=== PATIENT | female | born 1935 | race Two or more races ===

== ENCOUNTER → 2017-09-13 | Outpatient (CLI) | payer BC, MEDICARE ==
[2017-09-13 09:54] LABS: ALT 28 U/L (9-52); AST 28 U/L (14-36); Alkaline Phosphatase 105 U/L (38-126); Anion Gap 10 mmol/L; Blood Urea Nitrogen 17 mg/dL (7-17); Calcium 9.5 mg/dL (8.4-10.2); Carbon Dioxide 24 mmol/L (22-30); Chloride 102 mmol/L (98-107); Cholesterol 141 mg/dL (<200); Glucose 93 mg/dL (74-99); HDL Cholesterol 68 mg/dL (40-60); Non-African American GFR(MDRD) >60 (>60 ml/min/1.73 sqM); Potassium 4.7 mmol/L (3.5-5.1); Sodium 136 mmol/L (137-145); Total Bilirubin 0.5 mg/dL (0.2-1.3); Total Protein 7.8 g/dL (6.3-8.2)
[2017-09-13 10:03] LABS: CH 30.7; CHCM 32.4; HDW 2.34; HGB 13.9 gm/dL (11.4-16.0); MCH 30.1 pg (25.0-35.0); MCHC 31.6 g/dL (31.0-37.0); MCV 95.3 fL (80.0-100.0); Mean Platelet Volume 7.5; RBC 4.62 m/uL (3.80-5.40); RDW 12.6 % (11.5-15.5); WBC 5.8 k/uL (3.8-10.6)
[2017-09-13 11:26] LABS: Hemoglobin A1C 5.8 % (4.2-6.1)
== END | disposition home or self-care (01) ==
LOC: LABWHC1 08:40
PROVIDERS: ATTEND Internal Medicine
DX: Z00.00 Encounter for general adult medical examination without abnormal findings (principal); E78.5 Hyperlipidemia, unspecified; R73.01 Impaired fasting glucose
CPT/HCPCS: 36415; 80053; 80061; 83036; 85027

== ENCOUNTER 2019-08-21 11:41 | Day surgery (SDC) | payer OTHER, MEDICARE ==
[2019-08-18 16:17] VITALS: BMI 19.3
[~2019-08-21 11:41] MED LIST: ALBUTEROL NEB (CONC) 2.5 MG/0.5 ML INHALATION ONE; DEXAMETHASONE SOD PHOSPHATE 10 MG/ML 1 ML VIAL IV ONE; HYDROmorphone 0.5 MG/0.5 ML SYRINGE IVP PRN; LACTATED RINGERS 1,000 ML IV SCH; LIDOCAINE 1% 20 ML VIAL (10MG/ML) FOR IV START INTRADERMA PRN; LIDOCAINE 2% (PF) 20 MG/ML 5 ML VIAL INHALATION ONE; LIDOCAINE VISCOUS 300 MG/15 ML CUP MUCOUS MEM ONE; MIDAZOLAM 2 MG/2 ML VIAL IV PRN; ONDANSETRON 4 MG/2 ML VIAL IVP ONE; SODIUM CHLORIDE 0.9% 1,000 ML IV SCH; fentaNYL (PF) 50 MCG/ML 2 ML AMP IV PRN
[2019-08-21] MEDS ORDERED: PROPOFOL 10 MG/ML 20 ML VIAL IV ONE (13:11)
[2019-08-21] MEDS ORDERED: LIDOCAINE 1% INJ 10MG/ML (20 ML MDV) ONE (13:11)
[2019-08-21] MEDS ORDERED: LIDOCAINE 2% INJ 20 MG/ML INTRATRACH ONE (13:35)
[2019-08-21] MEDS ORDERED: IV FLUID CONTINUATION 1,000 ML IV ONE (14:20)
[2019-08-21 14:31] VITALS: TEMP 96.8
[2019-08-21 15:23] VITALS: BP 201/91; PULSE 61; RESP 18
--- NOTE | 2019-08-21 15:33 | XR ---
EXAMINATION TYPE: XR chest 1V portable DATE OF EXAM: 08/21/2019 COMPARISON: 02/13/2014 HISTORY: Status post postoperative lung biopsy in the right TECHNIQUE: Single frontal view of the chest is obtained. FINDINGS: New right basilar consolidation and trace right pleural effusion are seen. Interstitial pr ominence is chronic. Subpleural reticulation may relate to atelectasis or early fibrosis. Cardiomedia stinal silhouette is enlarged but similar to the prior of 2013. No sizable postprocedural pneumothora x. Minimal left basilar atelectasis. Diffuse osseous demineralization. Cholecystectomy clips are note d. IMPRESSION: Postbiopsy change of the right lower lobe with new right basilar consolidation and small right pleural effusion. No sizable postprocedural pneumothorax. Chronic enlargement of the cardiomed iastinal silhouette.
--- NOTE | 2019-08-21 21:18 | PCN ---
PROCEDURE NOTE PREOP DIAGNOSES: Right hilar mass. Subcarinal lymphadenopathy. POSTOP DIAGNOSES: Right hilar mass. Subcarinal lymphadenopathy. PROCEDURE PERFORMED: Flexible bronchoscopy under general anesthesia, transbronchial needle aspiration of subcarinal lymph nodes, endobronchial biopsy of the right middle lobe, endobronchial brushings of the right middle lobe, bronchioalveolar lavage of the right middle lobe. DESCRIPTION OF PROCEDURE: This procedure was done in the operating room. The patient was intubated and placed on mechanical ventilator. The patient was intubated by #8 oral tracheal tube and intubation process was done by anesthesia at the bed side. After achieving adequate anesthesia, the patient was oxygenated and ventilated appropriately and following that the flexible bronchoscope was inserted through the orotracheal tube and advanced into the lower trachea. The tip of the orotracheal tube was seen around 2 cm above the liliana. The airway inspection was done. Trachea was within normal limits. Bilateral mainstem bronchi were patent and within normal limits. Right upper lobe bronchus was normal. Bronchus intermedius was normal. Right lower lobe bronchus was normal. Right middle lobe orifice was quite narrowed probably 50% to its normal caliber and subsegments within the right middle lobe were not adequately visualized. There was some bloody secretions at the orifice of the right middle lobe bronchus. Examination of left side included left upper lobe bronchus, left lower bronchus, lingular segment all within normal limits. At this point, the bronchoscope was moved to the distal trachea and transbronchial needle aspirates of carinal lymph node was done using a 19- gauge cytology needle and 21-gauge histology needle. Multiple passes were obtained and central adequacy was confirmed was confirmed. Following that, the bronchoscope was moved to the right middle lobe. Endobronchial biopsies were done. No endobronchial tumor was seen as the right middle lobe bronchus was quite narrowed and constricted. I was able to wedge the bronchoscope in the right middle lobe orifice and endobronchial biopsies were done accordingly. Endobronchial brushings were also done. At the completion of the procedure, a washing of the right middle lobe was done with a total of 80 mL of fluid was infused and 25-30 mL was aspirated. No endobronchial bleeding. Total amount of bleed was less than 5 mL. The bronchoscope was removed and the patient was subsequently left to anesthesia to extubate. The procedure was completed and chest x-rays to follow. PLAN: The patient will be transferred to recovery once extubated and will continue to follow. MMALLEGRA / BETTYN: [id number] /
== END 2019-08-21 15:43 | disposition home or self-care (01) ==
LOC: ORWHC2ENDO 11:41
PROVIDERS: ATTEND Internal Medicine Critical Care Medicine
DX: J42 Unspecified chronic bronchitis (principal); J98.4 Other disorders of lung; R59.0 Localized enlarged lymph nodes; J90 Pleural effusion, not elsewhere classified; R93.1 Abnormal findings on diagnostic imaging of heart and coronary circulation; J43.9 Emphysema, unspecified; I25.10 Atherosclerotic heart disease of native coronary artery without angina pectoris; E78.2 Mixed hyperlipidemia; I10 Essential (primary) hypertension; I49.9 Cardiac arrhythmia, unspecified; H91.90 Unspecified hearing loss, unspecified ear; M19.90 Unspecified osteoarthritis, unspecified site; Z88.2 Allergy status to sulfonamides; Z79.82 Long term (current) use of aspirin; Z79.899 Other long term (current) drug therapy; Z80.6 Family history of leukemia; Z87.891 Personal history of nicotine dependence; Z87.81 Personal history of (healed) traumatic fracture; Z86.79 Personal history of other diseases of the circulatory system; Z87.01 Personal history of pneumonia (recurrent); Z90.49 Acquired absence of other specified parts of digestive tract; Z97.2 Presence of dental prosthetic device (complete) (partial)
CPT/HCPCS: 94640; 88104; 88108; 88305; 88173; 88342; 88341; 71045; 31629; 31623; 31624; J2001 ×3; J2704; 31625